=== PATIENT | female | born 2005 | race Caucasian/White ===

== ENCOUNTER 2023-09-17 20:39 | Emergency (ER) | payer OTHER ==
[~2023-09-17] VITALS: Ht 162.6 cm; Wt 70.3 kg
[2023-09-17 20:40] VITALS: BP 117/72; PULSE 86; RESP 16; TEMP 97.4
[2023-09-17 21:00] VITALS: O2SAT 100
[2023-09-17] MEDS ORDERED: IBUPROFEN 600 MG TAB PO ONE (21:45)
[2023-09-17] MEDS ORDERED: DIPH25TA53 PO (22:43)
[2023-09-17] MEDS ORDERED: HYD1C TP (22:43)
== END 2023-09-17 23:21 | disposition home or self-care (01) ==
LOC: MED 20:39
DX: L25.9 Unspecified contact dermatitis, unspecified cause (principal); Z88.0 Allergy status to penicillin; Z79.899 Other long term (current) drug therapy
CPT/HCPCS: 99282

== ENCOUNTER 2024-04-25 02:23 | Emergency (ER) | payer SELFPAY ==
[~2024-04-25] VITALS: Ht 165.1 cm; Wt 65.8 kg
[~2024-04-25 02:23] MED LIST: DIPH25TA53 PO; HYD1C TP
[2024-04-25 02:33] VITALS: BP 126/84; PULSE 90; RESP 14; TEMP 98.2; O2SAT 96
[2024-04-25 02:36] VITALS: TEMP 98.2
[2024-04-25] MEDS: KETOROLAC 30 MG/ML VIAL IVP ONE (03:01)
[2024-04-25] MEDS: ONDANSETRON 4 MG/2 ML VIAL IVP ONE (03:02)
[2024-04-25] MEDS: FAMOTIDINE 20 MG/2 ML VIAL IVP ONE (03:02)
[2024-04-25 03:03] LABS: BASOPHILS # (AUTO) 0.1 K/uL (0.00-0.22); BASOPHILS % (AUTO) 0.9 % (0.0-2.0); EOSINOPHILS # (AUTO) 0.3 K/uL (0-0.4); EOSINOPHILS % (AUTO) 2.4 % (0.0-4.0); HEMATOCRIT 37.5 % (36-48); HEMOGLOBIN 12.9 g/dL (12.0-16.0); LYMPHOCYTES # (AUTO) 2.1 K/uL (2.5-16.5); MEAN CORPUSCULAR HEMOGLOBIN 30 pg (27-31); MEAN CORPUSCULAR HGB CONC 34 g/dL (33-37); MEAN CORPUSCULAR VOLUME 86.6 fL (80-94); MONOCYTES # (AUTO) 1.5 K/uL (0.8-1.0); MONOCYTES % (AUTO) 14.1 % (1.7-9.3); NEUTROPHILS # (AUTO) 6.7 K/uL (1.8-7.7); NEUTROPHILS % (AUTO) 62.6 % (42.2-75.2); PLATELET COUNT (AUTO) 375 K/uL (140-450); RED BLOOD CELL COUNT(AUTO) 4.33 MIL/uL (4.20-5.40); RED CELL DISTRIBUTION WIDTH 13.3 % (11.6-13.7); WHITE BLOOD COUNT (AUTO) 10.7 K/uL (4.5-11.0)
[2024-04-25 03:16] LABS: ANION GAP 13.6 (8-16); CALCIUM 8.6 mg/dL (8.5-10.1); CARBON DIOXIDE 25.5 mmol/L (21-32); CREATININE 0.7 mg/dL (0.6-1.3); POTASSIUM 4.1 mmol/L (3.5-5.1)
[2024-04-25 03:27] LABS: ALBUMIN 3.7 g/dL (3.4-5.0); BILIRUBIN,DIRECT 0.1 mg/dL (0.0-0.3); TOTAL BILIRUBIN 0.7 mg/dL (0.0-1.0); TOTAL PROTEIN, SERUM 7.9 g/dL (6.4-8.2)
[2024-04-25] MEDS: NACL 0.9% 1,000 ML IV SCH (03:34)
[2024-04-25 03:37] LABS: BILIRUBIN,URINE NEGATIVE (NEGATIVE); BLOOD, URINE TRACE-I (NEGATIVE); COLOR,URINE YELLOW (YELLOW); LEUKOCYTE ESTERASE ,URINE 1+ (NEGATIVE); NITRITE, URINE POSITIVE (NEGATIVE); PROTEIN,URINE NEGATIVE (NEGATIVE); UGLUCOSE NEGATIVE (NEGATIVE); UROBILINOGEN,URINE 0.2 EU/dL (0.2 - 1)
[2024-04-25 04:08] LABS: APPEARANCE,URINE SLIGHTLY HAZY (CLEAR)
[2024-04-25 04:10] LABS: BACTERIA,URINE 3+ /HPF (None Seen); RBC,URINE 0-5 /HPF (0-5); SQUAMOUS EPITHELIAL CELL,UR 20-50 /LPF (0-3 (FEW))
[2024-04-25] MEDS ORDERED: cefTRIAXone 1,000 MG VIAL ONE (04:32)
[2024-04-25] MEDS: MORPHINE SULFATE 4 MG/ML SYR IVP ONE (05:10)
[2024-04-25 05:34] VITALS: BP 106/54; PULSE 89; RESP 10; O2SAT 98
[2024-04-25] MEDS ORDERED: ONDA-188 SL (06:46)
[2024-04-25] MEDS ORDERED: NITR100C7 PO (06:46)
== END 2024-04-25 07:19 | disposition home or self-care (01) ==
LOC: MED 02:23
DX: N30.00 Acute cystitis without hematuria (principal); Z88.0 Allergy status to penicillin; Z79.899 Other long term (current) drug therapy
CPT/HCPCS: 36415; 74177; 80048; 80076; 81001; 81025; 83690; 84703; 85025; 87086; 87186; 96361; 96365; 96375; 99285; J0696; J1885; J2270; J2405; J3490; J7030; Q9967